=== PATIENT | female | born 1965 | race American Indian/Alaskan Native ===

== ENCOUNTER 2018-02-02 03:16 | Emergency (ER) | payer MEDICAID, OTHER ==
[2018-02-02 03:27] VITALS: BMI 30.6
[2018-02-02] MEDS ORDERED: Sodium Chloride 0.9% 1,000 ML IV STA (03:45)
[2018-02-02] MEDS ORDERED: guaiFENesin-Codeine 100-10mg/5ml Syrup (5 ml) UD PO ONE (03:46)
--- NOTE | 2018-02-02 03:51 | ED PDOC ---
Arrival/HPI - General Historian: Patient - History of Present Illness Time/Duration: 1-3 hours Symptom Onset: Gradual Symptom Course: Unchanged Quality: Pressure Activities at Onset: Rest - General Chief Complaint: Chest Pain Time Seen by Provider: 02/02/18 03:34 - History of Present Illness Narrative History of Present Illness (Text): 02/02/18 03:47 patient is a 52F with no past medical history who presents to the ED after falling on tuesday while walking down the street texting. She missed a step on a curb and fell forward with her hands outstretched. At that time she had minor scrap on her ands and some minor shoulder and R. sided chest pain. The pain went a way for a day and then returned. She began to become concerned so she came to the ED. She took ibuprofen at home with minimal relief. Cough and deep inspiration makes the pain worse. She describes the pain as sharp in nature. The pain does not radiate. The pain is intermittent in nature. She denies any SOB, diaphoresis, fever, chills, nausea, vomiting. She is complaining of a productive cough, green sputum. (Logan Sims) Past Medical History - Past History Past History: No Previous - Infectious Disease Hx of Infectious Diseases: None - Tetanus Immunization Tetanus Immunization: Up to Date - Past Medical History Past Medical History: No Previous - Cardiac Hx Cardiac Disorders: No - Pulmonary Hx Respiratory Disorders: Yes Hx Bronchitis: Yes - Neurological Hx Neurological Disorder: No - HEENT Hx HEENT Disorder: No - Renal Hx Renal Disorder: No - Endocrine/Metabolic Hx Endocrine Disorders: No - Hematological/Oncological Hx Blood Disorders: No - Integumentary Hx Dermatological Disorder: No - Musculoskeletal/Rheumatological Hx Musculoskeletal Disorders: No - Gastrointestinal Hx Gastrointestinal Disorders: No - Genitourinary/Gynecological Hx Genitourinary Disorders: No - Psychiatric Hx Psychophysiologic Disorder: No Hx Substance Use: Yes (clean 8yrs as of 04/21/15) - Surgical History Hx Appendectomy: Yes Hx Tubal Ligation: Yes - Anesthesia Hx Anesthesia: Yes Hx Anesthesia Reactions: No Hx Malignant Hyperthermia: No - Suicidal Assessment Feels Threatened In Home Enviroment: No Family/Social History Family/Social History: No Known Family HX Smoking Status: Light Smoker < 10 Cigarettes Daily Hx Alcohol Use: Yes Frequency of alcohol use: Socially Hx Substance Use: Yes (clean 8yrs as of 04/21/15) Substance used: herione, cocaine Hx Substance Use Treatment: Yes (2009) Allergies/Home Meds Allergies/Adverse Reactions: Allergies No Known Allergies Allergy (Verified 02/02/18 03:28) Home Medications: Home Meds Medication Instructions Recorded Confirmed Aspirin [Aspirin EC] 81 mg PO DAILY 04/21/15 02/02/18 Review of Systems - Review of Systems Constitutional: Normal Eyes: Normal ENT: Normal Respiratory: SOB, Cough, Sputum. absent: Wheezing Cardiovascular: Chest Pain. absent: Palpitations, Edema Gastrointestinal: Normal Genitourinary Female: Normal Musculoskeletal: Normal Skin: Normal Neurological: Normal Endocrine: Normal Hemo/Lymphatic: Normal Psychiatric: Normal Physical Exam Temperature: Afebrile Blood Pressure: Normal Pulse: Regular Respiratory Rate: Normal Appearance: Positive for: Well-Appearing, Non-Toxic, Comfortable Pain Distress: None Mental Status: Positive for: Alert and Oriented X 3 - Systems Exam Head: Present: Atraumatic, Normocephalic Pupils: Present: PERRL Extroacular Muscles: Present: EOMI Conjunctiva: Present: Normal Mouth: Present: Moist Mucous Membranes Neck: Present: Normal Range of Motion Respiratory/Chest: Present: Clear to Auscultation, Good Air Exchange, Tender to Palpation (right side over ribe 2-3-4 midclavicular). No: Respiratory Distress , Accessory Muscle Use, Wheezes, Decreased Breath Sounds, Rales, Retracting, Rhonchi, Tachypneic Cardiovascular: Present: Regular Rate and Rhythm, Normal S1, S2. No: Murmurs Abdomen: Present: Normal Bowel Sounds. No: Tenderness, Distention, Peritoneal Signs Upper Extremity: Present: Normal Inspection. No: Cyanosis, Edema Lower Extremity: Present: Normal Inspection. No: Edema Neurological: Present: GCS=15, CN II-XII Intact, Speech Normal Skin: Present: Warm, Dry, Normal Color. No: Rashes Psychiatric: Present: Alert, Oriented x 3 Vital Signs Temp Pulse Resp BP Pulse Ox 02/02/18 04:36 98.2 F 84 18 126/82 99 Medical Decision Making ED Course and Treatment: Patient Seen With Resident: In agreement with resident note which contains more details about the patient. Patient was seen and evaluated with resident. Came up with plan and treatment together. (Raghu Herbert) - Lab Interpretations Lab Results: 02/02/18 04:30 02/02/18 04:30 Lab Results 02/02/18 04:30: Urine Opiates Screen Positive H, Urine Methadone Screen Negative , Ur Barbiturates Screen Negative, Ur Phencyclidine Scrn Negative, Ur Amphetamines Screen Negative, U Benzodiazepines Scrn Negative, U Oth Cocaine Metabols Positive H, U Cannabinoids Screen Positive H 02/02/18 04:30: PT 10.9, INR 0.95, APTT 31.1 02/02/18 04:30: Sodium 139, Potassium 3.5 L, Chloride 102, Carbon Dioxide 30, Anion Gap 11, BUN 10, Creatinine 0.7, Est GFR ( Amer) > 60, Est GFR (Non- Af Amer) > 60, Random Glucose 106, Calcium 9.5, Magnesium 1.9, Total Bilirubin 0.3, AST 27, ALT 27, Alkaline Phosphatase 77, Lactate Dehydrogenase 364, Total Creatine Kinase 68, Troponin I < 0.01, Total Protein 7.4, Albumin 4.0, Globulin 3.4, Albumin/Globulin Ratio 1.2 02/02/18 04:30: Urine Color Yellow, Urine Appearance Clear, Urine pH 7.0, Ur Specific [place] 1.020, Urine Protein Negative, Urine Glucose (UA) Negative, Urine Ketones Trace H, Urine Blood Negative, Urine Nitrate Negative, Urine Bilirubin Negative, Urine Urobilinogen 1.0 H, Ur Leukocyte Esterase Trace H, Urine RBC 0 - 2, Urine WBC 5 - 10, Ur Epithelial Cells 0 - 2, Urine Bacteria Few 02/02/18 04:30: WBC 6.8 D, RBC 3.81, Hgb 11.7 L, Hct 35.9 L, MCV 94.2, MCH 30.7 , MCHC 32.6, RDW 13.4, Plt Count 255, MPV 10.8, Gran % 62.2, Lymph % (Auto) 29.7 , [place] % (Auto) 6.0, Eos % (Auto) 1.8, Baso % (Auto) 0.3, Gran # 4.23, Lymph # ( Auto) 2.0, Churchill # (Auto) 0.4, Eos # (Auto) 0.1, Baso # (Auto) 0.02 - RAD Interpretation Radiology Orders: 02/02/18 03:36 CHEST PORTABLE [RAD] Stat - Medication Orders Current Medication Orders: Discontinued Medications Guaifenesin/Codeine Phosphate (Robitussin W/Codeine) 5 ml PO ONCE ONE Stop: 02/02/18 03:47 Last Admin: 02/02/18 04:43 Dose: 5 ml Sodium Chloride (Sodium Chloride 0.9%) 1,000 mls @ 999 mls/hr IV .Q1H1M STA Stop: 02/02/18 04:45 Last Admin: 02/02/18 04:43 Dose: 999 mls/hr eMAR Start Stop Document 02/02/18 04:43 NAVYA (Rec: 02/02/18 04:43 NAVYA [place] [id number]) Intravenous Solution Start Date 02/02/18 Start Time 04:43 End Date 02/02/18 End time 05:43 Total Infusion Time 60 Ketorolac Tromethamine (Toradol) 15 mg IVP STAT STA Stop: 02/02/18 03:46 Last Admin: 02/02/18 04:42 Dose: 15 mg MAR Pain Assessment Document 02/02/18 04:42 NAVYA (Rec: 02/02/18 04:42 NAVYA [place] [id number]) Pain Reassessment Is this a pain reassessment? Yes IVP Administration Document 02/02/18 04:42 NAVYA (Rec: 02/02/18 04:42 NAVYA [place] [id number]) Charges for Administration # of IVP Administrations 1 Potassium Chloride (K-Dur 20 Meq Er Tab) 40 meq PO STAT STA Stop: 02/02/18 05:54 Last Admin: 02/02/18 06:18 Dose: 40 meq - PA / INDUCTION MACHINE SETTER / Resident Statement / has reviewed & agrees with the documentation as recorded. / has examined the patient and agrees with the treatment plan. Disposition/Present on Arrival - Present on Arrival Any Indicators Present on Arrival: No History of DVT/PE: No History of Uncontrolled Diabetes: No Urinary Catheter: No History of Decub. Ulcer: No History Surgical Site Infection Following: None - Disposition Have Diagnosis and Disposition been Completed?: Yes Disposition Time: 06:18 - Disposition Diagnosis: Costochondritis Patient Problems: Current Active Problems Problem Status Onset Costochondritis Acute Condition: GOOD Additional Instructions: Please take naproxen for the pain every 6 hours as needed Please come back to the ED if pain worsens or if you develop fever, chills, diaphoresis Please follow up with your primary care provider in 7-10 days Referrals: Suzi Marie APN [Primary Care Provider] - Follow up with primary Forms: [employer] (Setswana)
[2018-02-02 04:47] VITALS: RESP 18; TEMP 98.2
[2018-02-02 05:33] LABS: BASO # 0.02 K/mm3 (0.0-2.0); BASO % 0.3 % (0.0-3.0); EOS # 0.1 (0.0-0.7); EOS % 1.8 % (1.5-5.0); GRAN # 4.23 (1.4-6.5); GRAN % 62.2 % (50.0-68.0); HEMOGLOBIN 11.7 g/dL (12.0-16.0); LYMPH % 29.7 % (22.0-35.0); MEAN CELL VOLUME 94.2 fl (80.0-105.0); MEAN CORPUSCULAR HEMOGLOBIN 30.7 pg (25.0-35.0); MEAN CORPUSCULAR HGB CONC 32.6 g/dl (31.0-37.0); MEAN PLATELET VOLUME 10.8 fl (7.0-11.0); MONO # 0.4 (0.1-0.6); RBC 3.81 10^6/uL (3.5-6.1); RED CELL DISTRIBUTION WIDTH 13.4 % (11.5-14.5); WHITE BLOOD COUNT 6.8 10^3/ul (4.5-11.0)
[2018-02-02 05:35] LABS: URINE BILIRUBIN NEGATIVE (NEGATIVE); URINE BLOOD NEGATIVE (NEGATIVE); URINE GLUCOSE (UA) NEGATIVE (NEGATIVE); URINE LEUKOCYTE ESTERASE TRACE Leu/uL (NEGATIVE); URINE PROTEIN NEGATIVE mg/dL (<30 mg/dL)
[2018-02-02 05:36] LABS: URINE APPEARANCE CLEAR (CLEAR); URINE COLOR YELLOW (YELLOW)
[2018-02-02 05:40] LABS: ALB/GLOB RATIO 1.2 (1.1-1.8); ALT/SGPT 27 U/L (7-56); AST/SGOT 27 U/L (14-36); BLOOD UREA NITROGEN 10 mg/dL (7-21); CALCIUM 9.5 mg/dL (8.4-10.5); GFR AFRICAN-AMERICAN > 60; GFR NON-AFRICAN AMERICAN > 60
[2018-02-02 05:47] LABS: INR 0.95 (0.93-1.08); PARTIAL THROMBOPLASTIN TIME 31.1 Seconds (25.1-36.5); PROTHROMBIN TIME 10.9 SECONDS (9.4-12.5)
[2018-02-02 05:50] LABS: BARBITURATES, UR NEGATIVE (NEGATIVE)
[2018-02-02 05:52] LABS: URINE EPITHELIAL CELLS 0 - 2 /hpf (0-5); URINE RBC 0 - 2 /hpf (0-2)
[2018-02-02 05:53] LABS: URINE BACTERIA FEW (NEG)
[2018-02-02] MEDS ORDERED: Potassium Chloride 20 mEq ER Tab PO STA (05:53)
[2018-02-02 05:57] LABS: TROPONIN I < 0.01 ng/mL
[2018-02-02 06:02] LABS: BENZODIAZEPINES, UR NEGATIVE (NEGATIVE); OPIATES, UR POSITIVE (NEGATIVE); PHENCYCLIDINE, UR NEGATIVE (NEGATIVE)
[2018-02-02 06:41] VITALS: BP 136/74; PULSE 88; O2SAT 100
--- NOTE | 2018-02-02 08:17 | RAD ---
HISTORY: chest pain COMPARISON: 03/20/2014 FINDINGS: LUNGS: No active pulmonary disease. PLEURA: No significant pleural effusion identified, no pneumothorax apparent. CARDIOVASCULAR: Normal. OSSEOUS STRUCTURES: No significant abnormalities. VISUALIZED UPPER ABDOMEN: Normal. OTHER FINDINGS: None. IMPRESSION: No active disease.
--- NOTE | 2018-02-02 11:33 | CARD ---
APPROVED REPORT EKG Measurement Heart [id number] <Conclusion> Normal sinus rhythm PRWP Improved repolarization c/w 12/24/14
== END 2018-02-02 06:41 | disposition home or self-care (01) ==
LOC: ED 03:16
DX: M94.0 Chondrocostal junction syndrome [Tietze] (principal); F17.210 Nicotine dependence, cigarettes, uncomplicated
CPT/HCPCS: 71045; 80053; 80324; 80345; 80346; 80349; 80353; 80358; 80361; 81001; 82550; 83615; 83735; 83992; 84484; 85025; 85610; 85730; 87086; 93005; 96361; 96374; 99283; J1885; J7040

== ENCOUNTER 2018-04-13 03:45 | Emergency (ER) | payer OTHER ==
[2018-04-13 03:46] VITALS: BMI 30.6
[2018-04-13 03:59] VITALS: RESP 18
[2018-04-13] MEDS ORDERED: guaiFENesin DM 200 mg-20 mg/10 ml UD PO STA (04:08)
--- NOTE | 2018-04-13 04:22 | ED PDOC ---
Arrival/HPI - General Chief Complaint: Cough, Cold, Congestion Time Seen by Provider: 04/13/18 04:07 - History of Present Illness Narrative History of Present Illness (Text): 04/13/18 04:11 Patient is a 52 year old female with past medical history of seasonal allergies who presents to the Emergency department complaining of nasal congestion for 1 week. Patient says she has gone through 2 bottles of Afrin and she continues to feel congested. I explained to the patient that she should not be using that much Afrin and told her to discontinue that. Patient says she also occasionally uses fluticasone nasal spray but this does not help. Patient has not tried any decongestants such as mucinex. She admits to associated cough productive of yellow sputum and sore throat. Denies fever, chills, headache, chest pain, shortness of breath, palpitations, abdominal pain, N&V, diarrhea, constipation, and lower extremity pain/swelling. Before I left the room patient stopped me to show me something that has been bothering her on the bottom of her feet. Patient says she thought it was a wart on the left foot so she tried to shave it down. When I examined it, it appeared to be a callus on both feet and the one on the left she had shaved down. I told her to try not to use anything sharp on it and to just keep in moisturized. (Linda Matamoros) Past Medical History - Past History Past History: No Previous - Infectious Disease Hx of Infectious Diseases: None - Tetanus Immunization Tetanus Immunization: Up to Date - Past Medical History Past Medical History: No Previous - Cardiac Hx Cardiac Disorders: No - Pulmonary Hx Respiratory Disorders: Yes Hx Bronchitis: Yes - Neurological Hx Neurological Disorder: No - HEENT Hx HEENT Disorder: No - Renal Hx Renal Disorder: No - Endocrine/Metabolic Hx Endocrine Disorders: No - Hematological/Oncological Hx Blood Disorders: No - Integumentary Hx Dermatological Disorder: No - Musculoskeletal/Rheumatological Hx Musculoskeletal Disorders: No - Gastrointestinal Hx Gastrointestinal Disorders: No - Genitourinary/Gynecological Hx Genitourinary Disorders: No - Psychiatric Hx Psychophysiologic Disorder: No Hx Substance Use: Yes (clean 8yrs as of 04/21/15) - Surgical History Hx Appendectomy: Yes Hx Tubal Ligation: Yes - Anesthesia Hx Anesthesia: Yes Hx Anesthesia Reactions: No Hx Malignant Hyperthermia: No - Suicidal Assessment Feels Threatened In Home Enviroment: No Family/Social History Family/Social History: Unknown Family HX Smoking Status: Light Smoker < 10 Cigarettes Daily Hx Alcohol Use: Yes Hx Substance Use: Yes (clean 8yrs as of 04/21/15) Substance used: herione, cocaine Hx Substance Use Treatment: Yes (2009) Allergies/Home Meds Allergies/Adverse Reactions: Allergies No Known Allergies Allergy (Verified 02/02/18 03:28) Home Medications: Home Meds Medication Instructions Recorded Confirmed RX: Aspirin [Aspirin EC] 81 mg PO DAILY 04/21/15 04/13/18 Review of Systems - Physician Review All systems were reviewed & negative as marked: Yes - Review of Systems Constitutional: Normal. absent: Fevers, Night Sweats Eyes: Normal. absent: Vision Changes ENT: Sore Throat, Rhinorrhea, Sinus Congestion, Other (pressure behind ears). absent: Hearing Changes, Tinnitus Respiratory: Cough, Sputum (yellow). absent: SOB, Wheezing Cardiovascular: absent: Chest Pain, Palpitations, Edema, Calf Pain Gastrointestinal: absent: Abdominal Pain, Constipation, Diarrhea, Nausea, Vomiting Genitourinary Female: Normal. absent: Dysuria, Frequency Musculoskeletal: Normal. absent: Arthralgias, Joint Swelling, Myalgias Skin: Other ("wart" on the bottome of her foot) Neurological: absent: Headache, Dizziness Physical Exam Vital Signs Reviewed: Yes Temperature: Afebrile Blood Pressure: Normal Pulse: Regular Respiratory Rate: Normal Appearance: Positive for: Well-Appearing, Non-Toxic, Comfortable Pain Distress: None Mental Status: Positive for: Alert and Oriented X 3 - Systems Exam Head: Present: Atraumatic, Normocephalic. No: Tenderness Pupils: Present: PERRL Extroacular Muscles: Present: EOMI Conjunctiva: Present: Normal Ears: Present: Normal, NORMAL TM, Normal Canal. No: Erythema, TM Bulging Mouth: Present: Moist Mucous Membranes Pharnyx: Present: Normal. No: ERYTHEMA, EXUDATE, TONSILS ENLARGED Nose (Internal): Present: Boggy Neck: Present: Normal Range of Motion. No: Lymphadenopathy Respiratory/Chest: Present: Clear to Auscultation, Good Air Exchange. No: Respiratory Distress, Accessory Muscle Use Cardiovascular: Present: Regular Rate and Rhythm, Normal S1, S2. No: Murmurs Abdomen: Present: Normal Bowel Sounds. No: Tenderness, Distention, Peritoneal Signs Upper Extremity: Present: Normal Inspection. No: Cyanosis, Edema Lower Extremity: Present: Normal Inspection. No: Edema, CALF TENDERNESS Neurological: Present: GCS=15, Speech Normal Skin: Present: Warm, Dry, Normal Color. No: Rashes Psychiatric: Present: Alert, Oriented x 3, Normal Insight, Normal Concentration Vital Signs Temp Pulse Resp BP Pulse Ox 04/13/18 04:37 98.0 F 86 18 117/76 100 04/13/18 03:55 98.5 F 71 18 126/74 99 Medical Decision Making ED Course and Treatment: 04/13/18 04:27 Plan: -Robitussin DM -Reassess Plan discussed with Dr. Gilmore (Linda Matamoros) Impression: Pt seen and evaluated with phlebotomist medical lab assistant. Pt, whose past medical history includes seasonal allergies, presented complaining of nasal congestion, cough, and sore throat. Aware and agree with HPI, clinical findings, plan, and management. Plan: -- Robitussin DM -- Reassess and disposition (Fabio Heredia) - Medication Orders Current Medication Orders: Discontinued Medications Guaifenesin/Dextromethorphan (Robitussin Dm) 10 ml PO STAT STA Stop: 04/13/18 04:09 Last Admin: 04/13/18 04:26 Dose: 10 ml - PA / ROTARY DRIER / Resident Statement / has reviewed & agrees with the documentation as recorded. / has examined the patient and agrees with the treatment plan. Disposition/Present on Arrival - Present on Arrival Any Indicators Present on Arrival: No History of DVT/PE: No History of Uncontrolled Diabetes: No Urinary Catheter: No History of Decub. Ulcer: No History Surgical Site Infection Following: None - Disposition Have Diagnosis and Disposition been Completed?: Yes Disposition Time: 04:28 - Disposition Diagnosis: Allergic rhinitis Disposition: HOME/ ROUTINE Discharge Instructions (ExitCare): Seasonal Allergies (DC), Sinusitis, Adult ( DC) Additional Instructions: Please follow up with your primary care provider within 1-2 days and return to the Emergency department if your experience any new or worsening symptoms. Forms: [employer] (Vietnamese)
[2018-04-13 04:41] VITALS: BP 117/76; PULSE 86; TEMP 98; O2SAT 100
== END 2018-04-13 04:37 | disposition home or self-care (01) ==
LOC: ED 03:45
DX: J30.9 Allergic rhinitis, unspecified (principal); F17.210 Nicotine dependence, cigarettes, uncomplicated